=== PATIENT | female | born 1970 | race Caucasian/White ===

== ENCOUNTER → 2016-08-20 | Outpatient (CLI) | payer OTHER ==
--- NOTE | 2016-08-20 13:03 | DX ---
AP Supine Abdomen, 12:23 p.m. Clinical History: 45-year-old female anticipating a left stent removal today. The patient has a histo ry of ureterolithiasis. ICD-10 Diagnostic Code: N20.0. Comparison Studies: Abdominal imaging, dated July 30, 2016, and intraoperative fluoroscopic image of the abdomen dated August 03, 2016. Findings: Again noted is an internalized left ureteral stent. The pigtail catheter has been proximall y withdrawn (was previously noted to reside over an upper pole calyx near the left 12th posterior rib level on the fluoroscopic image, and now resides along the caudal margin of the expected left renal pelvis near the left L2 transverse process level). There are a couple of punctate calcifications iden tified within the left kidney measuring approximately 2 to 4 mm in diameter. Air and fecal material o bscure the renal shadows otherwise, and other nephrolithiasis could be obscured. The previous study d emonstrated a mid left ureterolith just above the L4 transverse process level, which is no longer see n. Numerous phleboliths are seen within the pelvis, and are stable in distribution. There is a rectan gularly-shaped lucency (most consistent with a tampon in the upper vagina), over the lower pelvis. Th e osseous structures are age-appropriate. The lung bases have been excluded. Impression: 1. Left internalized ureteral stent, positioned as-described. 2. Left nephrolithiasis is observed; however, there has been interim passage of a previous left mid-u reterolith (fecal material could obscure other tinier punctate renal calculi).
== END ==
LOC: FIMAGING 12:24
PROVIDERS: ATTEND Specialist
DX: Z46.6 Encounter for fitting and adjustment of urinary device (principal); Z95.5 Presence of coronary angioplasty implant and graft; N20.0 Calculus of kidney